=== PATIENT | male | born 1960 | race Caucasian/White ===

== ENCOUNTER 2025-01-01 10:34 | Outpatient (AMB) | payer OTHER, SELFPAY ==
--- NOTE | 2025-01-01 10:43 | MHC.OFFVIS ---
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 levothyroxine 125 mcg PO DAILY propranolol ER 60 mg PO DAILY HPI Comments Details: Magdiel is here for cardiac evaluation. Currently the patient had [facility] but as he could not get an appointment there, it seems he was referred here. Prior records including available office note reviewed. Comorbidities listed include hypertension, severe dyslipidemia, prior smoking with radiographic evidence of COPD but normal PFTs, obesity, sedentary lifestyle. It seems that he was having some chest pain/shortness of breath and that led to nuclear stress test in 2018. That revealed RCA territory ischemia. Echocardiogram then had revealed preserved LVEF. 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 Currently, patient ischemic somewhat of nonspecific history. He is describing some chest pains but can happen any time. Sometimes after drinking coffee, activity, extra. Hence very variable. With regard to medications, he takes a full-dose aspirin 3 times a week. He states he does not believe in statins as he has read bad things about it. Hence does not take any. Of note, he has got history of high triglycerides. He is on propranolol which she apparently takes for tremors. [facility] Medical History (Updated 01/01/25 @ 11:01 by Benny Harrington MD) Atherosclerotic cardiovascular disease Surgical History History of cardiac cath Family History (Updated 01/01/25 @ 10:49 by Ambreen Gallardo CMA) Mother Colon cancer Leukemia Father Poor health Social History (Updated 01/01/25 @ 10:49 by Ambreen Gallardo CMA) Alcohol intake: former Patient Tobacco Use Status: Former Tobacco user Review of Systems Const Denies chills, Denies daytime sleepiness, Denies fatigue, Denies fever(s), Denies poor appetite, Denies snoring, Denies stops breathing during sleep, Denies weakness, Denies weight gain and Denies weight loss Eyes Denies loss of vision ENT Denies dizziness and Denies hearing loss Card Denies chest pain, Denies irregular heart rhythm, Denies claudication, Denies leg edema, Denies lightheadedness, Denies palpitations, Reports dyspnea on exertion and Denies orthopnea Resp Denies cough, Denies excessive phlegm production, Reports dyspnea on exertion, Denies snoring and Denies wheezing GI Denies abdominal pain, Denies hematochezia, Denies change in bowel habits, Denies nausea and Denies vomiting Denies dysuria and Denies urinary frequency Musc Denies arthralgias, Denies muscle weakness, Denies numbness and Denies other Skin/Breast Denies nail changes and Denies rash Neuro Denies Abnormal speech present, Denies dizziness, Denies loss of vision, Denies memory loss, Denies numbness and Denies weakness Psych Denies depression and Denies memory loss Endo Denies fatigue and Denies palpitations Jac/Lymph Denies easy bruising Aller/Immun Denies wheezing Physical Exam Vital Signs: Last Vital Signs Pulse 54 01/01/25 10:44 BP 110/70 01/01/25 10:44 BMI result Body Mass Index 28.1 Const General: comfortable and no acute distress Orientation/consciousness: patient oriented x3 HEENT Other: Unremarkable Head: Yes normal to inspection Neck Neck: Yes normal visual inspection Chest Chest palpation & inspection: normal inspection of the chest Resp Auscultation: clear to auscultation bilaterally Cardio Palpation: normal PMI Heart sounds: S1 normal heart sound present, S2 normal heart sound present, no gallops, no murmurs and no rubs GI Palpation (GI): Soft to palpation Back/Spine/Pelvis Other: unremarkable Skin General skin exam: no rashes or lesions noted Neuro General: patient oriented x3 Speech: No Abnormal speech present Extrem General: Yes normal to inspection Psych Mental Status: mental status grossly normal Office Procedures EKG Details: EKG with sinus bradycardia at 54/Min; nonspecific changes in the inferior wall; can not exclude old lateral infarct; normal HI/[place]. [id number], Complete Assessment & Plan Assessment & Plan (1) Atherosclerotic cardiovascular disease: Code(s): I25.10 - Atherosclerotic heart disease of [place] coronary artery without angina pectoris Category: Medical Plan Prior cardiac testing data reviewed. Nuclear stress test from 2018 - exercise for 9 minutes, reached 78% of max predicted heart rate with chest pressure and inferior ST depression; perfusion imaging showed RCA territory infarct with adam-infarct ischemia. Echocardiogram in 2018 showed LVEF 60%, mild diastolic dysfunction, no wall motion abnormalities and mild LVH. No significant valve findings. Cardiac catheterization 2018 with mid LAD 40% stenosis; mid circumflex 30% stenosis. RCA mild irregularities. Normal left main. LVEDP then [id number] elevated at 25 mm Hg. Recommendation was medical therapy for CAD/diastolic heart failure/COPD. Currently, symptoms are somewhat atypical but he does have history of established coronary disease. We will plan on repeating his echocardiogram and then a stress test. His cholesterol is quite abnormal. His triglycerides almost 600. LDL not calculated. Patient is against statins and states he would not want to take it as he has read different things about. I tried to speak to patient about this, but does not appear amenable. If willing, should go on statins in the future. Follow-up after the testing. Orders: Orders CA echo transthoracic complete Today I25.10 - Atherosclerotic heart disease of [place] coronary artery without angina pectoris CA echo stress exercise Today I25.10 - Atherosclerotic heart disease of [place] coronary artery without angina pectoris, R07.2 - Precordial pain Coding Level of Care Code New Pt Level 4 (08257) Diagnoses Atherosclerotic cardiovascular disease I25.10 CPT Codes EKG - CPT: 29928-[id number], Complete ([id number])
[2025-01-01 10:44] VITALS: BP 110/70; PULSE 54; BMI 28.1
== END 2025-01-01 11:29 | disposition home or self-care (01) ==
PROVIDERS: PCP Internal Medicine; Visit Provider Internal Medicine
DX: I25.10 Atherosclerotic heart disease of native coronary artery without angina pectoris (principal)
CPT/HCPCS: 93010; 99204

== ENCOUNTER → 2025-01-01 10:34 | Outpatient (BNVA) | payer OTHER, SELFPAY | PROVIDERS: PCP Internal Medicine; Visit Provider Internal Medicine | DX: I25.10 Atherosclerotic heart disease of native coronary artery without angina pectoris (principal); R07.2 Precordial pain | CPT/HCPCS: 93005 ==

== ENCOUNTER → 2025-01-04 08:58 | Outpatient (BNV) | payer OTHER, SELFPAY | PROVIDERS: Visit Provider Internal Medicine Cardiovascular Disease | DX: I35.8 Other nonrheumatic aortic valve disorders (principal) | CPT/HCPCS: 93306 ==

== ENCOUNTER → 2025-01-23 10:53 | Outpatient (REF) | payer OTHER, SELFPAY ==
--- NOTE | 2025-01-23 10:55 | CA_ITS ---
Acquisition Time: 2025-01-23 11:19:15 Total Exercise Time: 00:08:56 Test Indications: CP, SOB Medications: SEE H&P Protocol: NIKHIL Max HR: 121 BPM 78% of Pred: 154 BPM Max BP: 180/80 mmHG Max Work Load: 10.1 METS Exercise Stress Test with exercise 8 mins 56 secs of Nikhil Protocol, achieving 78% MPHR, with reports of moderate SOB, no chest discomfort, with isolated PVCs, with normotensive response to exercise. With borderline EKG changes milo exercise at the achieved workload. In recovery, breathing returned to baseline. Echo images obtained by tech at rest and post peak exercise. Definity contrast utilized. Test reviewed with Dr. Harrington. Referred By: Benny Harrington Electronically Signed By: Livan Guadarrama
== END ==
LOC: HO.CARD 10:53
PROVIDERS: PCP Internal Medicine; Visit Provider Internal Medicine
DX: R07.2 Precordial pain (principal); I25.10 Atherosclerotic heart disease of native coronary artery without angina pectoris
CPT/HCPCS: 93350; Q9957

== ENCOUNTER → 2025-01-23 10:55 | Outpatient (BNV) | payer OTHER, SELFPAY | PROVIDERS: PCP Internal Medicine | DX: R07.9 Chest pain, unspecified (principal); R06.02 Shortness of breath; I49.3 Ventricular premature depolarization | CPT/HCPCS: 93016; 93018; 93350; 93352 ==

== ENCOUNTER 2025-03-30 09:51 | Outpatient (AMB) | payer OTHER, SELFPAY ==
--- NOTE | 2025-03-30 10:03 | MHC.OFFVIS ---
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 levothyroxine 125 mcg PO DAILY propranolol ER 60 mg PO DAILY HPI HPI r/s F/up after echo/ stress test: Details: Magdiel is a 64-year-old male with past medical history of hypertension, hyperlipidemia, prior smoking, coronary artery disease who presents for follow-up after recent nuclear stress test and echocardiogram. Today he reports he has been doing well since his last visit. He had been experience some very mild vague discomfort in his chest when he did walking. He says this symptom has gradually improved. He does report being under high stress. No concerning shortness of breath, PND, orthopnea or edema. No heart palpitations, lightheadedness, presyncope, syncope. He walks routinely for exercise. Takes medications as directed. He is aware that his cholesterol is elevated and declined statin use. [facility] Medical History Atherosclerotic cardiovascular disease Surgical History History of cardiac cath Family History Mother Colon cancer Leukemia Father Poor health Social History Alcohol intake: former Patient Tobacco Use Status: Former Tobacco user Review of Systems Const All systems reviewed & are unremarkable except as noted in HPI and below Denies chills, Denies fatigue, Denies fever(s), Denies frequent falls, Denies weakness, Denies weight gain and Denies weight loss ENT Denies dizziness Card Denies chest pain, Denies chest pain at rest, Denies chest pain with activity, Denies leg edema, Denies lightheadedness, Denies palpitations, Denies dyspnea and Denies dyspnea on exertion Resp Denies cough, Denies dyspnea and Denies dyspnea on exertion GI Denies hematochezia Musc Denies abnormal gait, Denies muscle weakness, Denies numbness, Denies radiating pain into limb and Denies tingling Neuro Denies abnormal gait, Denies dizziness, Denies frequent falls, Denies numbness, Denies tingling and Denies weakness Endo Denies fatigue and Denies palpitations Physical Exam Vital Signs: Last Vital Signs Pulse 57 03/30/25 10:04 BP 120/70 03/30/25 10:04 BMI result Body Mass Index 27.2 Const General: cooperative, healthy appearing, comfortable and no acute distress Orientation/consciousness: patient oriented x3 HEENT Head: Yes normal to inspection Neck Neck: Yes normal visual inspection Resp Effort & Inspection: normal respiratory effort Auscultation: clear to auscultation bilaterally, no crackles, no rales, no rhonchi and no wheezes Cardio Jugular venous distension: no JVD Rate: regular rate Rhythm: regular rhythm Heart sounds: S1 normal heart sound present, S2 normal heart sound present, no gallops, no murmurs and no rubs GI Inspection: Yes normal to inspection Neuro General: patient oriented x3 Extrem General: Yes normal to inspection, No no pedal edema and No calf tenderness Psych Appearance: grossly normal Mental Status: mental status grossly normal Speech and movement: Normal speech and movement present Assessment & Plan Assessment & Plan (1) Atherosclerotic cardiovascular disease: Code(s): I25.10 - Atherosclerotic heart disease of [place] coronary artery without angina pectoris Category: Medical Plan: Known history of nonobstructive CAD. Notes indicate prior stress test for chest discomfort 2017 showed RCA territory ischemia. This led to cardiac catheterization showing left main normal, mid LAD 40% stenosis, proximal circumflex 70% stenosis and minimal RCA irregularities that was managed medically. He has been on daily aspirin. His cholesterol is not controlled. On last visit he reported vague discomfort and underwent a exercise stress echocardiogram which showed 9 minutes of exercise, moderate shortness of breath, borderline EKG changes and no echo evidence of ischemia, diastolic dysfunction or pulmonary hypertension. Echocardiogram done 01/04/2025 showed EF 65-70%, mild asymmetric septal hypertrophy, no mention of regional wall motion abnormality, normal valve Dopplers. Test results reviewed with him in detail. Signs and symptoms of angina discussed. Need for ongoing risk factor modification reviewed. Continues to decline statin therapy. Discussed how untreated cholesterol levels can further increase his degree of coronary artery disease and risk for [place]. He states understanding. Continue daily aspirin. Cardiology follow-up 6 months, sooner if needed. (2) Chest discomfort: Code(s): R07.89 - Other chest pain Category: Medical Plan: As above (3) Hyperlipidemia: Code(s): E78.5 - Hyperlipidemia, unspecified Category: Medical Plan: [place] LDL goal less than 70. Labs from 10/24/2024 showed total cholesterol 201, triglycerides 606, LDL not performed. Discussed reduction in carbohydrates, weight control and increasing physical activity Plan Time spent on chart review, documentation, interview and assessment Coding Level of Care Code Est Pt Level 4 (39497) Complex EM visit Add On G2211 Diagnoses Atherosclerotic cardiovascular disease I25.10 Chest discomfort R07.89 Hyperlipidemia E78.5 Time Spent (min) 28
[2025-03-30 10:04] VITALS: BP 120/70; PULSE 57; BMI 27.2
--- OUTSIDE RECORDS SUMMARY | 2025-03-30 10:42 | XMS_ITS | Clinical Summary ---
Author Organization [facility] [address] [place] [address] [place] [phone] Phone Care Team Providers Care Natural Gas Engineer Name Role Phone Jodi Min MD Primary Care Provider [phone] Allergies No known active allergies Medications aspirin 325 mg tablet Take 1 Tablet by mouth three times a week. Active cholecalcifero l (VITAMIN D-3) 125 mcg (5,000 unit) capsule Take 2 Capsules by mouth daily. Active magnesium glycinate 100 mg magnesium capsule Active potassium gluconate 595 mg (99 mg) tablet Take 1-2 tablets by mouth daily. Active zinc gluconate 100 mg tablet 8 Active propranoloL (INDERAL) 20 mg tablet TAKE 1 TABLET BY MOUTH THREE TIMES DAILY 180 tablet 5 Active levothyroxine (SYNTHROID, LEVOTHROID) 125 mcg tablet Take 1 tablet (125 mcg total) by mouth 1 (one) time each day. 90 tablet 3 5 Active levothyroxine (SYNTHROID, LEVOTHROID) 25 mcg tablet TAKE 1 TABLET(25 MCG) BY MOUTH DAILY 30 tablet 5 025 Discontinued levothyroxine (SYNTHROID, LEVOTHROID) 25 mcg tablet TAKE 1 TABLET(25 MCG) BY MOUTH DAILY 30 tablet 5 025 Discontinued levothyroxine (SYNTHROID, LEVOTHROID) 125 mcg tablet Take 1 tablet (125 mcg total) by mouth 1 (one) time each day. 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 V24, [facility] V2 8) 02/05/2011 Overview (11/20/2024): Prior cocaine, LSD, none since 1990 Encounters Date Type Department Care Team Description 03/26/2025 3:00 PM EDT Office Visit Adult Medicine [address] [phone] Gennaro Walker PA Hyperlipidemia, unspecified hyperlipidemia type (Primary Dx); Vitamin D deficiency; Essential hypertension; Hypertriglyceridemia; Screening PSA (prostate specific antigen); Elevated platelet count 03/19/2025 Telephone Adult Medicine [address] [phone] Caterina Aly MA Med Refill from Last 3 Months Immunizations Name Administration Dates Next Due Tdap Tetanus diptheria acell ular pertussis (Boostrix; Adacel) 7yo and older 04/09/2023,10/09/2011 Surgical History Surgery Date Site/Laterality Comments TONSILLECTOMY PROCEDURE: HISTORICAL TONSILLECTOMY; COMMENT: child HERNIA REPAIR PROCEDURE: HISTORICAL HERNIA REPAIR/ING; COMMENT: right, left COLONOSCOPY 07/28/2011 PROCEDURE: HI COLONOSCOPY FLX DX W/COLLJ SPEC WHEN PFRMD; COMMENT: normal COLONOSCOPY PROCEDURE: HISTORICAL COLONOSCOPY Medical History Medical History Date Comments Essential hypertension 08/17/2019 DX:Essent ial hypertension Hyperlipidemia DX:Hyperlipidemi a Low thyroid stimulating horm one (TSH) level DX:Low thyroid stimulating h ormone (TSH) level Straining with stools DX:Straini ng with stools Family History Medical History Relation Name Comments Alcohol/Drug Father Heart attack Father cig, etoh; dx i n late 60s Hyperlipidemia Father Stroke Father Coronary artery disease Maternal Grandfather at 70 of [place] Diabetes Maternal Grandmother Colon cancer Mother Relation Name Status Comments Father (Age 70) cerebral h emorrhage Maternal Grandfather Maternal Grandmother Mother Alive Social History Tobacco Use Types Packs/Day Years Used Date Smoking Tobacco: Former Cigarettes Q uit: 02/06/2011 Smokeless Tobacco: Never Tobacco Cessation:Counseling Given: Not Answered Alcohol Use Standard Drinks/Week Comments No 0 (1 standard drink = 0.6 oz pur e alcohol) Sex and Gender Information Value Date Recorded Sex Assigned at Not on file Legal Sex Male 7:06 PM EST Gender Identity Not on file Sexual Orientation Not on file Obstetrics History Last Filed Vital Signs Vital Sign Reading Time Taken Comments Blood Pressure 118/72 03/26/2025 2:57 PM EDT Pulse 56 03/26/2025 2:57 PM EDT Temperature 36.4 ??C (97.6 ??F) 03/26/2025 2:57 PM ED T Respiratory Rate 14 03/26/2025 2:57 PM EDT Oxygen Saturation 98% 03/26/2025 2:57 PM EDT Inhaled Oxygen Concentration - - Weight 97.1 kg (214 lb) 03/26/2025 2:57 PM EDT Height 185.4 cm (6' 1 ) 03/26/2025 2:57 PM EDT Body Mass Index 28.23 03/26/2025 2:57 PM EDT Plan of Treatment Health Maintenance Due Date Last Done Comments Hepatitis A Vaccines (1 of 2 - Risk 2-dose series) 1977 Pneumococcal Vaccine: 50+ Years (1 of 1 - PCV) 2008 Zoster Vaccines (1 of 2) 2008 Abdominal Aortic Aneurysm (AAA) Screen 10/31/2022 Medicare Annual Wellness Visit 10/31/2022 Social Influencers of Health Screening 10/31/2022 COVID-19 Vaccine ( - season) 2024 Lung Cancer Screening (Low Dose CT) 05/30/2025 05/30/2024, 05/21/2023 Depression Screening 07/07/2025 07/07/2024 Falls Risk Assessment 07/07/2025 07/07/2024 Influenza Vaccine (Season Ended) 2025 Hypertension/CHF/CAD Annual BMP Blood Test 03/27/2026 03/27/2025, 02/11/2024 Cholesterol Screening (Lipid Panel) 03/27/2030 03/27/2025, 03/27/2025, 07/20/2024, Additional history exists DTaP,Tdap,and Td Vaccines (3 - Td or Tdap) 04/09/2033 04/09/2023, 10/09/2011 RSV Immunization Adult Patients (1 - 1-dose 75+ series) 2033 Colorectal Cancer Screening: Colonoscopy 05/24/2034 05/24/2024 Hepatitis C Screening Completed 11/11/2015 HIB Vaccines Aged Out No longer eligi ble based on patient's age to complete this topic HPV Vaccines Aged Out No longer eligi ble based on patient's age to complete this topic Hepatitis B Vaccines Aged Out No long er eligible based on patient's age to complete this topic IPV Vaccines Aged Out No longer eligi ble based on patient's age to complete this topic MMR Vaccines Aged Out No longer eligi ble based on patient's age to complete this topic Meningococcal ACWY Vaccine Aged Out N o longer eligible based on patient's age to complete this topic Meningococcal B Vaccine Aged Out No l onger eligible based on patient's age to complete this topic RSV Immunization Patients Under 20 months Aged Out No longer eligible based on patient's age to complete this topic Varicella Vaccines Aged Out No longer eligible based on patient's age to complete this topic Procedures Procedure Name Priority Date/Time Associated Diagnosis Comments LDL CHOLESTEROL, DIRECT Routine 03/27/20 8:56 AM EDT Hyperlipidemia, unspecified hyperlipidemia type Vitamin D deficiency Essential hypertension Hypertriglyceridemia CBC WITH AUTO DIFFERENTIAL Routine 03/27/2025 8:56 AM EDT Hyperlipidemia, unspecified hyperlipidemia type Vitamin D deficiency Essential hypertension Hypertriglyceridemia CBC AND DIFFERENTIAL Routine 03/27/2025 8:56 AM EDT Hyperlipidemia, unspecified hyperlipidemia type Vitamin D deficiency Essential hypertension Hypertriglyceridemia COMPREHENSIVE METABOLIC PANEL Routine 03/27/2025 8:56 AM EDT Hyperlipidemia, unspecified hyperlipidemia type Vitamin D deficiency Essential hypertension Hypertriglyceridemia THYROXINE FREE Routine 03/27/2025 8:56 AM EDT Hyperlipidemia, unspecified hyperlipidemia type Vitamin D deficiency Essential hypertension Hypertriglyceridemia TRIIODOTHYRONINE TOTAL Routine 8:56 AM EDT Hyperlipidemia, unspecified hyperlipidemia type Vitamin D deficiency Essential hypertension Hypertriglyceridemia THYROID STIMULATING HORMONE Routine 03/27/2025 8:56 AM EDT Hyperlipidemia, unspecified hyperlipidemia type Vitamin D deficiency Essential hypertension Hypertriglyceridemia LIPID PANEL WITH REFLEX TO DIRECT LDL Routine 03/27/2025 8:56 AM EDT Hyperlipidemia, unspecified hyperlipidemia type Vitamin D deficiency Essential hypertension Hypertriglyceridemia PROSTATE SPECIFIC ANTIGEN SCREEN Routine 03/27/2025 8:56 AM EDT Screening PSA (prostate specific antigen) VITAMIN B12 Routine 03/27/2025 8:56 AM EDT Elevated platelet count FOLATE Routine 03/27/2025 8:56 AM EDT Elevated platelet count HM DEPRESSION SCREENING Routine 07/07/2024 FALLS RISK ASSESSMENT Routine 07/07/2024 CT LUNG SCREENING LOW DOSE Routine 05/30/2024 11:25 AM EDT Encounter for screening for malignant neoplasm of respiratory organs COLONOSCOPY Routine 05/24/2024 HEPATITIS C SCREENING Routine 11/11/2015 from Last 3 Months or Most Recently Relevant to Health Maintenance Results * Prostate specific antigen screen (03/27/2025 8:56 AM EDT) PSA 0.78 0.00 - 4.00 ng/mL LAB CHEMISTRY METHOD 03/28/2025 10:[address] [facility] Blood Venous blood specimen / Unknown Venipuncture / Unknown 03/27/2025 8:56 AM EDT 03/27/2025 8:[address] [facility] - 03/28/2025 10:36 PM EDT The Siemens Advia Centaur Chemiluminescent Immunoassay is used. Results obtained with different assay methods or kits cannot be used interchangeably. Results cannot be interpreted as absolute evidence of the presence or absence of malignant disease. us Gennaro FUENTES LAB BLOOD ORDERABLES Fin al Result [facility] [address] [place] [address], [place] [phone] * (ABNORMAL) Lipid panel with reflex to direct LDL (03/27/2025 8:56 AM EDT) [facility] Signature Cholesterol 243(H) 0 - 200 mg/dL LAB CHEMISTRY METHOD 03/27/2025 3:[address] [facility] Triglycerides 1,106(H) 0 - 150 mg/dL LAB CHEMISTRY METHOD 03/27/2025 3:[address] [facility] HDL 25(L) >=40 mg/dL LAB CHEMISTRY METHOD 03/27/2025 3:[address] [facility] LDL Calculated LAB CHEMISTRY METHOD 03/27/2025 3:[address] [facility] Comment: Unable to calculate when triglycerides >400 mg/dL. Triglyceride value is >= 500. ??Calculated LDL is not meaningful. ??Direct LDL has been added. VLDL Cholesterol Jimenez LAB CHEMISTRY METHOD 03/27/2025 3:[address] [facility] Comment:Unable to calculate when triglycerides >400 mg/dL. Non HDL Chol. (LDL+VLDL) LAB CHEMISTRY METHOD 03/27/2025 3:[address] [facility] Comment:Unable to calculate when triglycerides >400 mg/dL. Chol/HDL Ratio 9.7(H) 0.0 - 4.4 LAB CHEMISTRY METHOD 03/27/2025 3:[address] [facility] Blood Venous blood specimen / Unknown Venipuncture / Unknown 03/27/2025 8:56 AM EDT 03/27/2025 8:56 AM EDT us Gennaro FUENTES LAB BLOOD ORDERABLES Fin al Result [facility] [address] [place] [address], * (ABNORMAL) CBC auto differential (03/27/2025 8:56 AM EDT) WBC 5.9 4.8 - 10.8 K/mcL LAB HEMETOLOGY METHOD 03/27/2025 12:[address] [facility] RBC 5.10 4.50 - 5.50 M/mcL LAB [facility]EMETOLOGY [facility] Hemoglobin 15.4 13.5 - 17.5 g/dL LAB HEMETOLOGY METHOD 03/27/2025 12:[address] [facility] Hematocrit 45.5 42.0 - 54.0 % LAB HEMETOLOGY METHOD 03/27/2025 12:[address] [facility] MCV 88.5 79.0 - 98.0 FL LAB HEMETOLOGY METHOD [facility]/27[facility]2025 12[facility] MCH 30.0 27.0 - 32.0 pcg LAB HEMETOLOGY METHOD 03/27/2025 12:[address] [facility] MCHC 33.8 32.0 - 37.0 g/dL LAB HEMETOLOGY METHOD 03/27/2025 12:[address] [facility] RDW 13.2 11.0 - 15.0 % LAB HEMETOLOGY METHOD 03/27/2025 12:[address] [facility] Platelets 139 130 - 400 K/mcL LAB HEMETOLOGY METHOD 03/27/2025 12:[address] [facility] MPV 12.9(H) 7.0 - 11.0 FL LAB HEMETOLOGY METHOD 03/27/2025 12:[address] [facility] NRBC 0.0 <1.0 % LAB HEMETOLOGY METHOD 03/27[facility]2025 12[facility] NRBC Absolute 0.00 <0.10 K/mcL LAB HEMETOLOGY METHOD 03/27/2025 12:[address] [facility] Neutrophils Relative 59.3 % LAB HEMETOLOGY METHOD 03/27/2025 12:[address] [facility] Lymphocytes Relative 27.7 % LAB HEMETOLOGY METHOD 03/27/2025 12:[address] [facility] Monocytes Relative 8.5 % LAB HEMETOLOGY METHOD 03/27/2025 12:[address] [facility] Eosinophils Relative 3.1 % LAB HEMETOLOGY METHOD 03/27/2025 12:[address] [facility] Basophils Relative 1.2 % LAB HEMETOLOGY METHOD 03/27/2025 12:[address] [facility] Immature Granulocytes Relative 0.2 % LAB HEMETOLOGY METHOD 03/27/2025 12:[address] [facility] Neutrophils Absolute 3.50 1.50 - 7.00 K/mcL LAB HEMETOLOGY METHOD 03/27/2025 12:[address] [facility] Lymphocytes Absolute 1.63 1.00 - 5.00 K/mcL LAB HEMETOLOGY METHOD 03/27/2025 12:[address] [facility] Monocytes Absolute 0.50 0.20 - 1.00 K/mcL LAB HEMETOLOGY METHOD 03/27/2025 12:[address] [facility] Eosinophils Absolute 0.18 0.00 - 0.50 K/mcL LAB HEMETOLOGY METHOD 03/27/2025 12:[address] [facility] Basophils Absolute 0.07 0.00 - 0.20 K/mcL LAB HEMETOLOGY METHOD 03/27/2025 12:[address] [facility] Immature Granulocytes Absolute 0.01 0.00 - 0.03 K/[facility] LAB HEMETOLOGY METHOD 03/27/2025 12:[address] [facility] Blood Venous blood specimen / Unknown Venipuncture / Unknown 03/27/2025 8:56 AM EDT 03/27/2025 8:56 AM EDT Gennaro FUENTES LAB BLOOD ORDERABLES Fin al Result Performing Organization Address City/[facility]/ZIP Co de Phone Number [facility] [address] [place] [address], [place] [phone] * Triiodothyronine total (03/27/2025 8:56 AM EDT) Pathologist [facility] T3, Total 99.35 60.00 - 181.00 ng/dL LAB CHEMISTRY METHOD 03/27/2025 5:[address] [facility] Blood Venous blood specimen / Unknown Venipuncture / Unknown 03/27/2025 8:56 AM EDT 03/27/2025 8:56 AM EDT Gennaro FUENTES LAB BLOOD ORDERABLES Fin al Result [facility] [address] [place] [address], [place] [phone] * (ABNORMAL) Thyroid stimulating hormone (03/27/2025 8:56 AM EDT) TSH 4.89(H) 0.40 - 4.00 mcIU/mL LAB CHEMISTRY METHOD 03/27/2025 5:[address] [facility] Blood Venous blood specimen / Unknown Venipuncture / Unknown 03/27/2025 8:56 AM EDT 03/27/2025 8:56 AM EDT Gennaro FUENTES LAB BLOOD ORDERABLES Fin al Result Performing Organization Address [facility]/ZIP Co de Phone Number [facility] [address] [place] [address], [place] [phone] * Thyroxine free (03/27/2025 8:56 AM EDT) Free T4 1.30 0.70 - 1.80 ng/dL LAB CHEMISTRY METHOD 03/27/2025 5:[address] [facility] Blood Venous blood specimen / Unknown Venipuncture / Unknown 03/27/2025 8:56 AM EDT 03/27/2025 8:56 AM EDT Gennaro FUENTES LAB BLOOD ORDERABLES Fin al Result Performing Organization Address [facility] de Phone Number [facility] [address] [place] [address], [place] [phone] * LDL cholesterol, direct (03/27/2025 8:56 AM EDT) LDL Direct 76 <=100 mg/dL LAB CHEMISTRY METHOD 03/27/2025 3:[address] [facility] Blood Venous blood specimen / Unknown Venipuncture / Unknown 03/27/2025 8:56 AM EDT 03/27/2025 8:56 AM EDT Gennaro FUENTES LAB BLOOD ORDERABLES Fin al Result Performing Organization Address City/[facility]/ZIP Co de Phone Number [facility] [address] [place] [address], [place] [phone] * (ABNORMAL) Folate (03/27/2025 8:56 AM EDT) [facility] Folate >20.0(H) 2.8 - 17.0 ng/ml LAB CHEMISTRY METHOD 03/27/2025 3:[address] [facility] Blood Venous blood specimen / Unknown Venipuncture / Unknown 03/27/2025 8:56 AM EDT 03/27/2025 8:56 AM EDT Gennaro FUENTES LAB BLOOD ORDERABLES Fin al Result Performing Organization Address [facility]/ZIP Co de Phone Number [facility] [address] [place] [address], [place] [phone] * (ABNORMAL) Vitamin B12 (03/27/2025 8:56 AM EDT) [facility] Vitamin B-12 >2,000(H) 250 - 900 pcg/mL LAB CHEMISTRY METHOD 03/27/2025 3:[address] [facility] Blood Venous blood specimen / Unknown Venipuncture / Unknown 03/27/2025 8:56 AM EDT 03/27/2025 8:56 AM EDT Gennaro FUENTES LAB BLOOD ORDERABLES Fin al Result Performing Organization Address City/[facility]/ZIP Co de Phone Number [facility] [address] [place] [address], [place] [phone] * (ABNORMAL) Comprehensive metabolic panel (03/27/2025 8:56 AM EDT) [facility] Sodium 141 133 - 145 mmol/L LAB CHEMISTRY METHOD 03/27/2025 3:[address] [facility] Potassium 4.0 3.5 - 5.5 mmol/L LAB CHEMISTRY METHOD 03/27/2025 3:[address] [facility] Chloride 106 96 - 110 mmol/L LAB CHEMISTRY METHOD 03/27/2025 3:[address] [facility] CO2 27 21 - 32 mmol/L LAB CHEMISTRY METHOD 03/27/2025 3:[address] [facility] Anion Gap 8 3 - 11 LAB CHEMISTRY METHOD 03/27/2025 3:[address] [facility] Glucose 109(H) 70 - 100 mg/dL LAB CHEMISTRY METHOD 03/27/2025 3:[address] [facility] BUN 16 5 - 25 mg/dL LAB CHEMISTRY METHOD 03/27/2025 3:[address] [facility] Creatinine 1.08 0.70 - 1.30 mg/dL LAB CHEMISTRY METHOD 03/27/2025 3:[address] [facility] eGFR 76 >=60 mL/min/1. 73m2 LAB CHEMISTRY METHOD 03/27/2025 3:[address] [facility] Comment:Calculation based on the??Chronic Kidney Disease Epidemiology Collaboration (CKD-EPI) equation refit??without adjustment for race. BUN/Creatinine Ratio 14.8 LAB CHEMISTRY METHOD 03/27/2025 3:[address] [facility] Calcium 8.7 8.5 - 10.5 mg/dL LAB CHEMISTRY METHOD 03/27/2025 3:[address] [facility] AST (SGOT) 19 10 - 42 unit/L LAB CHEMISTRY METHOD 03/27/2025 3:[address] [facility] ALT (SGPT) 39 10 - 60 unit/L LAB CHEMISTRY METHOD 03/27/2025 3:[address] [facility] Alkaline Phosphatase 78 42 - 121 unit/L LAB CHEMISTRY METHOD 03/27/2025 3:[address] [facility] Total Protein 6.6 6.0 - 8.0 g/dL LAB CHEMISTRY METHOD 03/27/2025 3:[address] [facility] Albumin 3.8 3.2 - 5.0 g/dL LAB CHEMISTRY METHOD 03/27/2025 3:[address] [facility] Total Bilirubin 0.4 0.0 - 1.4 mg/dL LAB CHEMISTRY METHOD 03/27/2025 3:[address] [facility] Blood Venous blood specimen / Unknown Venipuncture / Unknown 03/27/2025 8:56 AM EDT 03/27/2025 8:56 AM EDT Gennaro FUENTES LAB BLOOD ORDERABLES Fin al Result [facility] [address] [place] [address], * Falls Risk Assessment (07/07/2024) Falls Risk Assessment Abstracted Historical Provider MD HEALTH MAINTENANCE Final Result * Depression Screening (07/07/2024) Depression Screening Abstracted Historical Provider MD HEALTH MAINTENANCE Final Result * CT LUNG SCREENING LOW DOSE (05/30/2024 11:25 AM EDT) Anatomical Region Laterality Modality Computed Tomogra phy 05/27/2024 7:41 AM EDT Narrative 05/30/2024 11:25 AM EDT [facility] Diagnostic Imaging Department [address] [place] [id number] Patient: ??JEET STATON ?/Age/Sex: 1960 - 63 - M Unit#: ??[id number] ? Location/Status: ??SPDICATLS/REG CLI ? Mnemonic/Ordering Site: ??CTLUNGLD/SPCT Ordering Physician: ??LOURDES CARLTON MD CT Lung Screening Low Dose - 05/27/24 - 0751 Report Status:Signed PROCEDURE: Chest CT INDICATION: Former smoker, greater than 20 pack-year smoking history, lung cancer screening TECHNIQUE: Chest CT without contrast. Multi planar reformats were created and interpreted. The examination was performed utilizing dose reduction techniques. Total DLP 122 COMPARISON: ??05/21/2023 FINDINGS: LUNGS/PLEURA: Central airways are patent. ??No new or suspicious pulmonary nodules. ??Right apical pleural-parenchymal scarring. ??No pleural effusion or pneumothorax. MEDIASTINUM: Thyroid gland is unremarkable. No mediastinal or hilar lymphadenopathy. Cardiac chambers are normal in size. No pericardial effusion. Mild coronary calcifications. ??Aortic valvular calcifications are mild. ??Small hiatal hernia. CHEST WALL: No axillary lymphadenopathy or superficial hematoma. UPPER ABDOMEN:Hepatic steatosis. BONES: Bones are normal for age. IMPRESSION: No new or suspicious pulmonary nodules. ??Lung RADS 1-negative. ??Recommend continued screening with low-dose chest CT in 12 months. Dictating Physician: ??TAMRA BONILLA MD Electronically Signed by: ??TAMRA BONILLA MD Dic Date/Time: ??05/30/24 1117 Sign date/Time: ??05/30/24 1125 Procedure Note Tamra Bonilla MD - 09/13/2024 [facility] Diagnostic Imaging Department [address] [place] [address] Patient: JEET STATON.O.B./Age/Sex: 1960 - 63 - M Unit#: [id number] Location/Status: SPDICATLS/REG CLI Mnemonic/Ordering [facility]: [facility] Ordering Physician: LOURDES CARLTON MD CT Lung Screening Low Dose - 05/27/24 - 0751 Report Status:Signed PROCEDURE: Chest CT INDICATION: Former smoker, greater than 20 pack-year smoking history,lung cancer screening TECHNIQUE: Chest CT without contrast. Multi planar reformats were createdand interpreted. The examination was performed utilizing dose reductiontechniques. Total DLP 122 COMPARISON: 05/21/2023 FINDINGS: LUNGS/PLEURA: Central airways are patent. No new or suspiciouspulmonary nodules. Right apical pleural-parenchymal scarring. No pleural effusionor pneumothorax. MEDIASTINUM: Thyroid gland is unremarkable. No mediastinal or hilar lymphadenopathy. Cardiac chambers are normal in size. No pericardialeffusion. Mild coronary calcifications. Aortic valvular calcifications are mild.Small hiatal hernia. CHEST WALL: No axillary lymphadenopathy or superficial hematoma. UPPER ABDOMEN:Hepatic steatosis. BONES: Bones are normal for age. IMPRESSION: No new or suspicious pulmonary nodules. Lung RADS 1-negative.Recommend continued screening with low-dose chest CT in 12 months. Dictating Physician: TAMRA BONILLA MD Electronically Signed by: TAMRA BONILLA MD Dic Date/Time: 05/30/24 1117 Sign date/Time: 05/30/24 1125 Lourdes Carlton MD [facility] [place] PROCEDURES Final Result * Colonoscopy (05/24/2024) Colonoscopy No Interpretation , Abstracted Anatomical Region Laterality Modality Other Historical Provider HEALTH MAINTENANCE Final Result * Hepatitis C Screening (11/11/2015) Hepatitis C Screening Abstracted Historical Provider HEALTH MAINTENANCE Final Result from Last 3 Months or Most Recently Relevant to Health Maintenance Insurance [employer] on file Care Teams Natural Gas Engineer Relationship Specialty Start Date End Date Jodi Min MD [address] [place] [address] PCP - General Internal Medicine 10/31/15
--- OUTSIDE RECORDS SUMMARY | 2025-03-30 10:42 | XMS_ITS | Encounter Summary ---
Author Organization [facility] Address [address] [place] [address] Care Team Providers Care Senior It Security Analyst Name Role Phone Jodi Min MD Primary Care Provider [phone] Reason for Visit * Reason Comments Follow-up Medication review Encounter Details Date Type Department Care Team ([facility] st Contact Info) Description 03/26/2025 3:00 PM EDT Office Visit Adult Medicine [facility] [address] [place], [place] [phone] Gennaro Walker PA [address] [place] [address] Hyperlipidemia, unspecified hyperlipidemia type (Primary Dx); Vitamin D deficiency; Essential hypertension; Hypertriglyceridemia; Screening PSA (prostate specific antigen); Elevated platelet count Social History Tobacco Use Types Packs/Day Years [...] on file Sexual Orientation Not on file documented as of this encounter Last Filed Vital Signs Vital Sign Reading [...] Mass Index 28.23 03/26/2025 2:57 PM EDT documented in this encounter Ordered Prescriptions Prescription Sig Dispense Quantity Refills Last Filled Start Date End Date levothyroxine (SYNTHROID, LEVOTHROID) 125 mcg tablet Take 1 tablet (125 mcg total) by mouth 1 (one) time each day. 90 tablet 3 03/26/2025 documented in this encounter Progress Notes * ALFREDO Luis - 03/26/2025 3:00 PM EDT CHIEF COMPLAINT: Follow-up (Medication review) IDENTIFIER: Magdiel Main is a 64 y.o. old male. History of Present Illness The patient is a 64-year-old gentleman here for evaluation of his medical conditions. He reports no adverse reactions to his current medication regimen. He has been managing his thyroidcondition independently, utilizing [employer] for blood tests. His T4 levels were within normal limits, but his TSH levels were significantly elevated. He is currently on levothyroxine 125 mcg and requests a refill as he accidentally dropped the whole bottle in the sink and had to get an emergency refill. He also requests a blood test as it has been a year since his last one. Dietary modifications have been made, such as reducing coffee intake and consuming more bread. A lack of physical activity is acknowledged. His triglyceride level was 796 and cholesterol level was 246 when checked last month. Supplementation with B12 and folate is ongoing. Hemoglobin A1c is 5.9. A diet free of sugar and unhealthy foods is maintained, opting for coffee with milk and Splenda instead. Alcohol is abstained from, and rice and pasta are avoided, although homemade bread is consumed. SOCIAL HISTORY He does not drink alcohol. 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 FAMILY HISTORY He reports no family history of prostate cancer. Health maintenance reviewed. 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 Hyperlipidemia 03/26/2011 Alcohol abuse, in remission 02/05/2011 Drug abuse in remission ([facility] V24, [facility] V28) 02/05/2011 Past Surgical History: Procedure Laterality Date COLONOSCOPY 07/28/2011 PROCEDURE: OK COLONOSCOPY FLX DX W/COLLJ SPEC WHEN PFRMD; COMMENT: normal COLONOSCOPY PROCEDURE: HISTORICAL COLONOSCOPY HERNIA REPAIR PROCEDURE: HISTORICAL HERNIA REPAIR/ING; COMMENT: right, left TONSILLECTOMY PROCEDURE: HISTORICAL TONSILLECTOMY; COMMENT: child SOCIAL HISTORY: Social History Tobacco Use Smoking status: Former Current packs/day: 0.00 Types: Cigarettes Quit date: 02/06/2011 Years since quittin.1 Smokeless tobacco: Never Substance Use Topics Alcohol use: No FAMILY HISTORY: Family History Problem Relation Name Age of Onset Colon cancer Mother Hyperlipidemia Father Heart attack Father cig, etoh; dx in late 60s Stroke Father Alcohol/Drug Father Diabetes Maternal Grandmother Coronary artery disease Maternal Grandfather at 70 of [place] Family Status Relation Name Status Mother Alive Father at age 70 cerebral hemorrhage MGM (Not Specified) MGF (Not Specified) No partnership data on file MEDICATIONS DISCONTINUED/REORDERED: Medications Discontinued During This Encounter Medication Reason levothyroxine (SYNTHROID, LEVOTHROID) 25 mcg tablet levothyroxine (SYNTHROID, LEVOTHROID) 125 mcg tablet ACTIVE MEDICATIONS: Outpatient Medications Marked as Taking for the 03/26/25 encounter (Office Visit) with ALFREDO Luis Medication Sig Dispense Refill aspirin 325 mg tablet Take 1 Tablet by mouth three times a week. cholecalciferol (VITAMIN D-3) 125 mcg (5,000 unit) capsule Take 2 Capsules by mouth daily. magnesium glycinate 100 mg magnesium capsule potassium gluconate 595 mg (99 mg) tablet Take 1-2 tablets by mouth daily. propranoloL (INDERAL) 20 mg tablet TAKE 1 TABLET BY MOUTH THREE TIMES DAILY 180 tablet 0 zinc gluconate 100 mg tablet [DISCONTINUED] levothyroxine (SYNTHROID, LEVOTHROID) 125 mcg tablet Take 1 tablet (125 mcg total) by mouth 1 (one) time each day. [DISCONTINUED] levothyroxine (SYNTHROID, LEVOTHROID) 25 mcg tablet TAKE 1 TABLET(25 MCG) BY MOUTH DAILY 30 tablet 0 levothyroxine (SYNTHROID, LEVOTHROID) 125 mcg tablet Take 1 tablet (125 mcg total) by mouth 1 (one)time each day. 90 tablet 3 ALLERGIES: No Known Allergies PHYSICAL EXAM: Vitals: 03/26/25 1457 BP: 118/72 Pulse: 56 Resp: 14 Temp: 36.4 ??C (97.6 ??F) SpO2: 98% Physical Exam Well appearing Heart RRR Lungs CTAB Ambulates with steady gait IMPRESSION: 1. Hyperlipidemia, unspecified hyperlipidemia type 2. Vitamin D deficiency 3. Essential hypertension 4. Hypertriglyceridemia 5. Screening PSA (prostate specific antigen) 6. Elevated platelet count Assessment & Plan 1. Thyroid disorder. - Per his report, T4 levels within normal limits, but TSH levels significantly elevated. - Currently on levothyroxine 125 mcg; requests a refill due to accidental spillage and emergency refill. - Comprehensive panel ordered to assess TSH, T3, and T4 levels. 2. Elevated triglycerides. - Triglyceride levels reported to be 796 last month. - Advised to fast before the next blood test to accurately assess the extent of the triglyceride issue. - Follow-up triglyceride test will be ordered. - Discussion on dietary habits and potential genetic factors influencing triglyceride levels. 3. Elevated hemoglobin A1c. - Hemoglobin A1c reported to be 5.9. - Advised to continue monitoring blood sugar levels and maintain a diet low in carbohydrates and sugars. - Discussion on dietary habits, including avoidance of rice, pasta, and bread. 4. Health maintenance. - Screening PSA test will be conducted as part of blood work to screen for prostate cancer. - Review of family history and previous rectal exams; decision to include PSA test in current bloodwork. I have obtained verbal consent from Magdiel Main prior to the recording. I have advised Magdiel Main that he may refuse the recording and require the recording to be turned off at any time during this encounter. All questions and concerns were addressed. Magdiel Main verbalizes understanding and agrees withthis treatment plan. Patient was reminded to call or return to the office if any new or existing problems arise. Orders Placed This Encounter Procedures CBC and differential Comprehensive metabolic panel Thyroxine free Triiodothyronine total Thyroid stimulating hormone Lipid panel with reflex to direct LDL Prostate specific antigen screen Vitamin B12 Folate None ALFREDO Luis on 03/26/2025 at 3:33 PM EDT Today's documentation was made using voice recognition software.This note may contain grammatical errors secondary to this software. documented in this encounter Plan of Treatment Not on file documented as of this encounter Results * (ABNORMAL) Folate (03/27/2025 8:56 AM EDT) Pathologist [facility] Folate >20.0(H) 2.8 - 17.0 ng/ml LAB CHEMISTRY METHOD 03/27/2025 3:09 PM EDT [facility] Blood Venous blood specimen / Unknown Venipuncture / Unknown 03/27/2025 8:56 AM EDT 03/27/2025 8:56 AM EDT Gennaro FUENTES LAB BLOOD ORDERABLES Fin al Result Performing Organization Address City/[facility]/ZIP Co de Phone Number [facility] [address] [place] [address], [place] [phone] * (ABNORMAL) Vitamin B12 (03/27/2025 8:56 AM EDT) [facility] Vitamin B-12 >2,000(H) 250 - 900 pcg/mL LAB CHEMISTRY METHOD 03/27/2025 3:09 PM EDT [facility] Blood Venous blood specimen / Unknown Venipuncture / Unknown 03/27/2025 8:56 AM EDT 03/27/2025 8:56 AM EDT Gennaro FUENTES LAB BLOOD ORDERABLES Fin al Result Performing Organization Address City/[facility]/ZIP Co de Phone Number [facility] [address] [place] [address], [place] [phone] * Prostate specific antigen screen (03/27/2025 8:56 AM EDT) PSA 0.78 0.00 - 4.00 ng/mL LAB CHEMISTRY METHOD 03/28/2025 10:36 PM EDT [facility] Blood Venous blood specimen / Unknown Venipuncture / Unknown 03/27/2025 8:56 AM EDT 03/27/2025 8:56 AM EDT Narrative [facility] - 03/28/2025 10:36 PM EDT The Siemens Advia Centaur Chemiluminescent Immunoassay is used. Results obtained with different assay methods or kits cannot be used interchangeably. Results cannot be interpreted as absolute evidence of the presence or absence of malignant disease. us Gennaro FUENTES LAB BLOOD ORDERABLES Fin al Result [facility] [address] [place] [address], * (ABNORMAL) Lipid panel with reflex to direct LDL (03/27/2025 8:56 AM EDT) Pathologist [facility] Cholesterol 243(H) 0 - 200 mg/dL LAB CHEMISTRY METHOD 03/27/2025 3:09 PM EDT [facility] Triglycerides 1,106(H) 0 - 150 mg/dL LAB CHEMISTRY METHOD 03/27/2025 3:09 PM EDT [facility] HDL 25(L) >=40 mg/dL LAB CHEMISTRY METHOD 03/27/2025 3:09 PM EDT [facility] LDL Calculated LAB CHEMISTRY METHOD 03/27/2025 3:09 PM T [facility] Comment: Unable to calculate when triglycerides >400 mg/dL. Triglyceride value is >= 500. ??Calculated LDL is not meaningful. ??Direct LDL has been added. VLDL Cholesterol Jimenez LAB CHEMISTRY METHOD 03/27/2025 3:09 PM EDT [facility] Comment:Unable to calculate when triglycerides >400 mg/dL. Non HDL Chol. (LDL+VLDL) LAB CHEMISTRY METHOD 03/27/2025 3:09 PM EDT [facility] Comment:Unable to calculate when triglycerides >400 mg/dL. Chol/HDL Ratio 9.7(H) 0.0 - 4.4 LAB CHEMISTRY METHOD 03/27/2025 3:09 PM EDT [facility] Blood Venous blood specimen / Unknown Venipuncture / Unknown 03/27/2025 8:56 AM EDT 03/27/2025 8:56 AM EDT Gennaro FUENTES LAB BLOOD ORDERABLES Fin al Result Performing Organization Address [facility]/ZIP Co de Phone Number [facility] [address] [place] [address], [place] [phone] * (ABNORMAL) Thyroid stimulating hormone (03/27/2025 8:56 AM EDT) TSH 4.89(H) 0.40 - 4.00 mcIU/mL LAB CHEMISTRY METHOD 03/27/2025 5:17 PM EDT [facility] Blood Venous blood specimen / Unknown Venipuncture / Unknown 03/27/2025 8:56 AM EDT 03/27/2025 8:56 AM EDT Gennaro FUENTES LAB BLOOD ORDERABLES Fin al Result [facility] [address] [place] [address], [place] [phone] * Triiodothyronine total (03/27/2025 8:56 AM EDT) T3, Total 99.35 60.00 - 181.00 ng/dL LAB CHEMISTRY METHOD 03/27/2025 5:17 PM EDT [facility] Blood Venous blood specimen / Unknown Venipuncture / Unknown 03/27/2025 8:56 AM EDT 03/27/2025 8:56 AM EDT Gennaro FUENTES LAB BLOOD ORDERABLES Fin al Result Performing Organization Address City/[facility]/ZIP Co de Phone Number [facility] [address] [place] [address], [place] [phone] * Thyroxine free (03/27/2025 8:56 AM EDT) [facility] Free T4 1.30 0.70 - 1.80 ng/dL LAB CHEMISTRY METHOD 03/27/2025 5:16 PM EDT [facility] Blood Venous blood specimen / Unknown Venipuncture / Unknown 03/27/2025 8:56 AM EDT 03/27/2025 8:56 AM EDT Gennaro FUENTES LAB BLOOD ORDERABLES Fin al Result Performing Organization Address [facility] Co de Phone Number [facility] [address] [place] [address], [place] [phone] * (ABNORMAL) Comprehensive metabolic panel (03/27/2025 8:56 AM EDT) [facility] Sodium 141 133 - 145 mmol/L LAB CHEMISTRY METHOD 03/27/2025 3:09 PM T [facility] Potassium 4.0 3.5 - 5.5 mmol/L LAB CHEMISTRY METHOD 03/27/2025 3:09 PM [facility] Chloride 106 96 - 110 mmol/L LAB CHEMISTRY METHOD 03/27/2025 3:09 PM [facility] CO2 27 21 - 32 mmol/L LAB CHEMISTRY METHOD 03/27/2025 3:09 PM [facility] Anion Gap 8 3 - 11 LAB CHEMISTRY METHOD 03/27/2025 3:09 PM [facility] Glucose 109(H) 70 - 100 mg/dL LAB CHEMISTRY METHOD 03/27/2025 3:09 PM [facility] BUN 16 5 - 25 mg/dL LAB CHEMISTRY METHOD 03/27/2025 3:09 PM [facility] Creatinine 1.08 0.70 - 1.30 mg/dL LAB CHEMISTRY METHOD 03/27/2025 3:09 PM [facility] eGFR 76 >=60 mL/min/1. 73m2 LAB CHEMISTRY METHOD 03/27/2025 3:09 PM [facility] Comment:Calculation based on the??Chronic Kidney Disease Epidemiology Collaboration (CKD-EPI) equation refit??without adjustment for race. BUN/Creatinine Ratio 14.8 LAB CHEMISTRY METHOD 03/27/2025 3:09 PM [facility] Calcium 8.7 8.5 - 10.5 mg/dL LAB CHEMISTRY METHOD 03/27/2025 3:09 PM [facility] AST (SGOT) 19 10 - 42 unit/L LAB CHEMISTRY METHOD 03/27/2025 3:09 PM [facility] ALT (SGPT) 39 10 - 60 unit/L LAB CHEMISTRY METHOD 03/27/2025 3:09 PM [facility] Alkaline Phosphatase 78 42 - 121 unit/L LAB CHEMISTRY METHOD 03/27/2025 3:09 PM [facility] Total Protein 6.6 6.0 - 8.0 g/dL LAB CHEMISTRY METHOD 03/27/2025 3:09 PM [facility] Albumin 3.8 3.2 - 5.0 g/dL LAB CHEMISTRY METHOD 03/27/2025 3:09 PM [facility] Total Bilirubin 0.4 0.0 - 1.4 mg/dL LAB CHEMISTRY METHOD 03/27/2025 3:09 PM [facility] Blood Venous blood specimen / Unknown Venipuncture / Unknown 03/27/2025 8:56 AM EDT 03/27/2025 8:56 AM EDT us Gennaro FUENTES LAB BLOOD ORDERABLES Fin al Result [facility] [address] [place] [address], documented in this encounter Visit Diagnoses Diagnosis Hyperlipidemia, unspecified hyperlipidemia type- Primary Vitamin D deficiency Essential hypertension Unspecified essential hypertension Hypertriglyceridemia Pure hyperglyceridemia Screening PSA (prostate specific antigen) Special screening for malignant neoplasm of prostate Elevated platelet count Essential thrombocythemia documented in this encounter Discontinued Medications Medication Sig Discontinue Reason Start Date End Da te levothyroxine (SYNTHROID, LEVOTHROID) 25 mcg tablet TAKE 1 TABLET(25 MCG) BY MOUTH DAILY 03/19/2025 03/26/2025 levothyroxine (SYNTHROID, LEVOTHROID) 125 mcg tablet Take 1 tablet (125 mcg total) by mouth 1 (one) time each day. 03/19/2025 03/26/2025 documented as of this encounter Historical Medications * This list may reflect changes made after this encounter. levothyroxine (SYNTHROID, LEVOTHROID) 125 mcg tablet Take 1 tablet (125 mcg total) by mouth 1 (one) time each day. 03/19/2025 03/26/2025 added in this encounter Care Teams Senior [employer] Analyst Relationship Specialty Start Date End Date Jodi Min MD [address] [place] [address] PCP - General Internal Medicine 10/31/15 documented as of this encounter
== END 2025-03-30 10:36 | disposition home or self-care (01) ==
LOC: HO.HCS 09:54
PROVIDERS: PCP Internal Medicine; Visit Provider Nurse Practitioner Family
DX: I25.10 Atherosclerotic heart disease of native coronary artery without angina pectoris (principal); R07.89 Other chest pain; E78.5 Hyperlipidemia, unspecified
CPT/HCPCS: 99214; G2211

== ENCOUNTER → 2025-03-30 09:51 | Outpatient (BNVA) | payer OTHER, SELFPAY | PROVIDERS: PCP Internal Medicine; Visit Provider Nurse Practitioner Family ==